=== PATIENT | male | born 1970 | race Caucasian/White ===

== ENCOUNTER 2016-11-01 10:53 | Emergency (ER) | payer SELFPAY ==
[2016-11-01 12:12] VITALS: BP 120/64
== END 2016-11-01 12:12 | disposition home or self-care (01) ==
LOC: ED 10:53
DX: S62.326A Displaced fracture of shaft of fifth metacarpal bone, right hand, initial encounter for closed fracture (principal); W22.8XXA Striking against or struck by other objects, initial encounter; Y99.8 Other external cause status; Y93.89 Activity, other specified; Y92.89 Other specified places as the place of occurrence of the external cause
CPT/HCPCS: Q0092

== ENCOUNTER 2016-11-26 17:27 | Emergency (ER) | payer SELFPAY ==
[2016-11-26 17:46] VITALS: BP 154/93
== END 2016-11-26 18:31 | disposition home or self-care (01) ==
LOC: ED 17:27
DX: T16.2XXA Foreign body in left ear, initial encounter (principal); Z88.0 Allergy status to penicillin; Z88.6 Allergy status to analgesic agent; W45.8XXA Other foreign body or object entering through skin, initial encounter; Y93.89 Activity, other specified; Y92.89 Other specified places as the place of occurrence of the external cause; Y99.8 Other external cause status